=== PATIENT | male | born 1990 | race Caucasian/White ===

== ENCOUNTER 2018-04-12 10:44 | Emergency (ER) | payer OTHER ==
[2018-04-12 10:59] VITALS: BP 122/83
[2018-04-12] MEDS ORDERED: DEXAMETHASONE 10 MG/ML VIAL PO STA (12:04)
--- NOTE | 2018-04-12 12:08 | ED Physician Documentation ---
PD HPI HEENT - Stated complaint Stated Complaint: SORE THROAT - Chief complaint Chief Complaint: Heent - History obtained from History obtained from: Patient, Family - History of Present Illness Timing - onset: How many days ago (3) Timing - duration: Days (3) Timing - details: Gradual onset, Still present Location: Throat Improves: Medication Worsens: Swalllowing Associated symptoms: Fever, Congestion, Rhinorrhea, Swollen nodes, Cough Similar symptoms before: Has not had sx before Recently seen: Not recently seen - Additional information Additional information: Previously well 27-year-old male is been sick for about 3 days with a cough fever and congestion. He has been coughing up some thick yellow phlegm. He has had a bit of a fever and his chief complaint is a sore throat. His pain with swallowing but is able to breathe well. Review of Systems Constitutional: reports: Fever, Chills, Fatigue Eyes: denies: Decreased vision Ears: denies: Ear pain Nose: reports: Rhinorrhea / runny nose, Congestion Throat: reports: Sore throat Cardiac: denies: Chest pain / pressure, Palpitations Respiratory: reports: Cough. denies: Dyspnea GI: denies: Nausea, Vomiting : denies: Dysuria, Frequency Skin: denies: Rash Musculoskeletal: denies: Neck pain, Back pain, Extremity pain Neurologic: denies: Generalized weakness, Focal weakness PD PAST MEDICAL HISTORY - Present Medications Home Medications: Ambulatory Orders Medication Instructions Recorded Confirmed Azithromycin [Zithromax] 250 mg PO DAILY #6 tablet 04/12/18 - Allergies Allergies/Adverse Reactions: Allergies Allergy/AdvReac Type Severity Reaction Status Date / Time Penicillins Allergy Hives Verified 04/12/18 10:52 PD ED PE NORMAL - Vitals Vital signs reviewed: Yes (hypertensive mild ) - General General: Alert and oriented X 3, No acute distress, Well developed/nourished - HEENT HEENT: Atraumatic, PERRL, EOMI, Other (Right TM is inflamed the left is less so. The tonsils are 1+ cryptic and exudative. The left is larger than the right. 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, No motor deficit, No sensory deficit, Normal speech Eye Opening: Spontaneous Motor: Obeys Commands Verbal: Oriented GCS Score: 15 - Psych Psych: Normal mood, Normal affect Results - Vitals Vitals: Vital Signs - 24 hr 04/12/18 10:50 Temperature 36.4 C L Heart Rate 84 Respiratory 16 Rate Blood Pressure 122/83 H O2 Saturation 98 Oxygen O2 Source Room air - Labs Labs: Laboratory Tests 04/12/18 10:50 Group A Strep Rapid Negative PD MEDICAL DECISION MAKING - ED course Complexity details: reviewed results, re-evaluated patient, considered differential, d/w patient, d/w family ED course: 27-year-old male with a sore throat has some swollen tonsils with exudate and he has otitis on exam. He has been coughing up thick yellow phlegm. He is administered dexamethasone 10 mg orally and we will place him on some azithromycin. - Sepsis Event Vital Signs: Vital Signs - 24 hr 04/12/18 10:50 Temperature 36.4 C L Heart Rate 84 Respiratory 16 Rate Blood Pressure 122/83 H O2 Saturation 98 Oxygen O2 Source Room air Departure - Departure Disposition: 01 Home, Self Care Clinical Impression: Tonsillitis Otitis media Qualifiers: Otitis media type: suppurative Chronicity: acute Laterality: right Recurrence: not specified as recurrent Spontaneous tympanic membrane rupture: without spontaneous rupture Qualified Code(s): H66.001 - Acute suppurative otitis media without spontaneous rupture of ear drum, right ear Condition: Stable Instructions: ED Otitis Media Acute Adult, ED Tonsillitis Follow-Up: [facility] [Provider Group] Prescriptions: Azithromycin [Zithromax] 250 mg PO DAILY #6 tablet
[2018-04-12] MEDS ORDERED: CHERRY SYRUP 10 ML UDC PO ONE (12:10)
== END 2018-04-12 12:16 | disposition home or self-care (01) ==
LOC: ED 10:44
DX: J03.90 Acute tonsillitis, unspecified (principal); H66.001 Acute suppurative otitis media without spontaneous rupture of ear drum, right ear
CPT/HCPCS: 87070; 87430; 99282; 99283; A9270

== ENCOUNTER 2023-02-08 10:02 | Emergency (ER) | payer OTHER ==
[2023-02-08 10:18] LABS: BASOPHILS % (AUTO) 0.5 %; EOSINOPHILS % (AUTO) 0.5 %; HCT - HEMATOCRIT 45.8 % (42.0-52.0); LYMPHOCYTES # (AUTO) 1.4 10^3/uL (1.5-3.5); LYMPHOCYTES % (AUTO) 21.2 %; MEAN CORPUSCULAR HEMOGLOBIN 29.6 pg (27.0-31.0); MEAN CORPUSCULAR HGB CONC 32.8 g/dL (32.0-36.0); MEAN CORPUSCULAR VOLUME 90.5 fL (80.0-94.0); MEAN PLATELET VOLUME 10.1 fL (7.4-11.4); MONOCYTES # (AUTO) 0.5 10^3/uL (0.0-1.0); MONOCYTES % (AUTO) 7.6 %; NEUTROPHILS # (AUTO) 4.5 10^3/uL (1.5-6.6); PLT - PLATELET COUNT 203 10^3/uL (130-450); RED BLOOD COUNT 5.06 10^6/uL (4.70-6.10); RED CELL DISTRIBUTION WIDTH 12.8 % (12.0-15.0); WHITE BLOOD COUNT 6.5 x10^3/uL (4.8-10.8)
--- NOTE | 2023-02-08 10:29 | ED Physician Documentation ---
PD HPI CHEST PAIN - Stated complaint Stated Complaint: CHEST PX,FATIGUE - Chief complaint Chief Complaint: Cardiac - History of Present Illness Timing - onset: Enter time, How many hours ago (1), Today Timing - onset during: Light activity Timing - duration: Hours (1) Timing - details: Abrupt onset, Still present (though lessening) Quality: Aching, Sharp, Pain Location: Left chest, Upper back Radiation: Back. No: Jaw, Neck Improved by: No: Rest Worsened by: No: Inspiration, Movement, Palpation Associated symptoms: Feeling faint / dizzy. No: Shortness of air, Nausea, Vomiting, Cough Similar symptoms before: Has not had sx before Recently seen: Not recently seen Review of Systems Constitutional: denies: Fever, Chills, Myalgias Nose: denies: Rhinorrhea / runny nose, Congestion Throat: denies: Sore throat Respiratory: denies: Cough GI: denies: Abdominal Pain, Vomiting, Diarrhea Skin: denies: Rash, Lesions Neurologic: reports: Near syncope (he describes few occasional episodes of feeling lightheaded and generally weak without syncope. Lasts minute or less. Not related to heavy exertion (he works out okay without symptoms).) PD PAST MEDICAL HISTORY - Past Medical History Cardiovascular: None Respiratory: None Neuro: None Endocrine/Autoimmune: None - Present Medications Home Medications: Ambulatory Orders Medication Instructions Recorded Confirmed Azithromycin [Zithromax] 250 mg PO DAILY #6 tablet 04/12/18 - Allergies Allergies/Adverse Reactions: Allergies Allergy/AdvReac Type Severity Reaction Status Date / Time Penicillins Allergy Hives Verified 02/08/23 10:05 - Living Situation Living Situation: reports: With spouse/s.o. Living Arrangement: reports: At home - Social History Does the pt smoke?: No Does the pt drink ETOH?: No Does the pt have substance abuse?: No PD ED PE NORMAL - Vitals Vital signs reviewed: Yes - General General: Alert and oriented X 3, No acute distress, Well developed/nourished - Neck Neck: Supple, no meningeal sign, No adenopathy - Cardiac Cardiac: RRR, No murmur - Respiratory Respiratory: Clear bilaterally - Abdomen Abdomen: Soft, Non tender - Back Back: No CVA TTP - Derm Derm: Normal color, Warm and dry - Neuro Neuro: Alert and oriented X 3, No motor deficit, Normal speech Results - Vitals Vitals: Vital Signs - 24 hr 02/08/23 02/08/23 02/08/23 10:05 10:45 11:44 Temperature 36.5 C Heart Rate 62 59 L 58 L Respiratory 16 16 14 Rate Blood Pressure 148/89 H 122/81 H 115/69 O2 Saturation 98 99 100 02/08/23 02/08/23 13:53 14:27 Temperature Heart Rate 55 L 53 L Respiratory 15 13 Rate Blood Pressure 120/79 127/80 O2 Saturation 99 97 Oxygen O2 Source Room air - EKG (time done) 10:25 EKG releavant findings:: EKG personally interpreted by author of this note. Relevant findings are: Rate: Rate (enter#) (53) Rhythm: Sinus bradycardia Bishop: Normal Intervals: Normal MS QRS: Normal Ischemia: Normal ST segments. No: ST elevation c/w ischemia, ST depression - Labs Labs: Laboratory Tests 02/08/23 02/08/23 02/08/23 10:13 10:13 10:13 WBC 6.5 RBC 5.06 Hgb 15.0 Hct 45.8 MCV 90.5 MCH 29.6 MCHC 32.8 RDW 12.8 Plt Count 203 MPV 10.1 Neut # (Auto) 4.5 Lymph # (Auto) 1.4 L [place] # (Auto) 0.5 Eos # (Auto) 0.0 Baso # (Auto) 0.0 Absolute Nucleated RBC 0.00 Nucleated RBC % 0.0 Sodium 139 Potassium 4.0 Chloride 103 Carbon Dioxide 28 Anion Gap 8.0 BUN 15 Creatinine 1.1 Estimated GFR (MDRD) 79 L Glucose 107 H Calcium 9.7 Total Bilirubin 0.7 AST 23 ALT 33 Alkaline Phosphatase 67 Troponin I High Sens < 2.3 L C-Reactive Protein B-Natriuretic Peptide Total Protein 8.0 Albumin 4.4 Globulin 3.6 Albumin/Globulin Ratio 1.2 Lipase 34 02/08/23 02/08/23 10:13 10:13 WBC RBC Hgb Hct MCV MCH MCHC RDW Plt Count MPV Neut # (Auto) Lymph # (Auto) [place] # (Auto) Eos # (Auto) Baso # (Auto) Absolute Nucleated RBC Nucleated RBC % Sodium Potassium Chloride Carbon Dioxide Anion Gap BUN Creatinine Estimated GFR (MDRD) Glucose Calcium Total Bilirubin AST ALT Alkaline Phosphatase Troponin I High Sens C-Reactive Protein < 1.0 B-Natriuretic Peptide 19 Total Protein Albumin Globulin Albumin/Globulin Ratio Lipase - Rads (name of study) chest xray Relevant Findings:: Prelim report reviewed, EMP independent interpretation of test (no acute process. ) chest CT-A Relevant Findings:: Prelim report reviewed (no PEs, lungs clear, normal thoracic aorta.), See rad report PD Medical Decision Making - ED course Complexity details: reviewed results (ECG showing RBBB, which might be normal/chronic for him, but no prior ECGs available and he does not recall prior ones. Given some abnormal ECG (not ischemic though) and chest pain, I was more concerned even for younger age. To get trop, CXR, and likely CT-A for PE/dissection. ), considered differential (abrupt severe left chest pain today nonexertional. No recent URI. No injury. Is lesseneing enroute here and moderate here. ), d/w patient Reviewed Lab Results: labs and CT-A are without acute findings. With all tests normal, presume RBBB not acutely ischemic/etc. Chest pain likely musculoskeletal though not a pleuritic component. I did do bedside U/S of the heart and found normal size, no wall thickening, concentric normal contractility, and no pericaridal effusion. Troponin is normal. BNP as well. No anemic, electrlyte problems, no signs of CHF. Departure - Departure Disposition: 01 Home, Self Care Clinical Impression: Chest pain, Fatigue, Right bundle branch block (RBBB) on electrocardiogram (ECG) Condition: Stable Record reviewed to determine appropriate education?: Yes Instructions: Block Right Bundle Branch, ED Chest Pain Atypical Unkn Cause Follow-Up: ANI SELBY MD [Primary Care Provider] - Comments: Its unclear the cause of the pain you had in your chest. I presume musculoskeletal and with that I would suggest ibuprofen 2-3 times daily if neede d for pain and discomfort. Add Tylenol if needed. Here in the ER, your chest x-ray and CT scan of the chest are normal without any signs of pneumonia/collapsed lung, fluid around the heart or lung and no blood clots nor aneurysms/dissection. Your blood tests that evaluate for heart failure and heart muscle injury are both normal as well. We did an inflammation marker called CRP that is normal so not no sign of immune inflammatory processes such as pericarditis. I did a bedside ultrasound evaluation of your heart. We do not have the technicians for a formal echocardiogram today but on my view, you have symmetric and normal contractions of the heart muscle with normal size of the heart and no fluid around. No obvious abnormality on that. Regarding episodes of lightheadedness or fatigue, your blood tests were normal with regard to blood count and chemistry panel. No signs of diabetes, anemia, electrolyte problems, kidney or liver problems. At this point I think normal activity is okay. I would follow-up with your primary care. They may wish to do some further heart testing as your EKG did show an electrical abnormality called a right bundle branch block. This typically is benign and just can be a normal variation. It may be prudent to have a formal ultrasound of the heart to ensure no structural problems (valve abnormalities or heart murmurs etc.). This does not need to be done urgently. Follow-up with your primary care if the chest pain has not resolved over the next several days to week or you continue with other this lightheaded episodes etc. Be sure to stay well-hydrated. Perhaps decrease caffeine use in general. Discharge Date/Time: 02/08/23 14:31
[2023-02-08 10:30] LABS: ALBUMIN 4.4 g/dL (3.2-5.5); ALBUMIN/GLOBULIN RATIO 1.2 (1.0-2.2); BILIRUBIN,TOTAL 0.7 mg/dL (0.2-1.0); CALCIUM 9.7 mg/dL (8.5-10.3); CREATININE 1.1 mg/dL (0.6-1.2)
--- NOTE | 2023-02-08 10:36 | XRAY Report ---
PROCEDURE: Chest 1 View X-Ray INDICATIONS: Chest pain TECHNIQUE: One view of the chest was acquired. COMPARISON: None. FINDINGS: Surgical changes and devices: None. Lungs and pleura: No pleural effusions or pneumothorax. Lungs are clear. Mediastinum: Mediastinal contours appear normal. Heart size is normal. Bones and chest wall: No suspicious bony lesions. Overlying soft tissues appear unremarkable. IMPRESSION: No acute cardiopulmonary process. Reviewed by: Rod Keys MD on 02/08/2023 10:35 AM PDT Approved by: Rod Keys MD on 02/08/2023 10:35 AM PDT Station ID: [id number]
[2023-02-08] MEDS ORDERED: KETOROLAC 15 MG/ML VIAL IVP STA (11:30)
[2023-02-08] MEDS ORDERED: iohexoL-300 100 ML VIAL ONE (12:39)
--- NOTE | 2023-02-08 14:14 | CT Report ---
PROCEDURE: ANGIO CHEST W/WO INDICATIONS: left chest pain acute CONTRAST: 80ml omni 300 TECHNIQUE: After the administration of intravenous contrast, 2 mm axial images were acquired from the pulmonary apices to the posterior costophrenic angles during the arterial phase. In addition, 1 mm lung kernel and 5 mm soft tissue kernel reconstructions were performed. 3-dimensional coronal oblique maximum int ensity projection (MIP) reformats, 8 mm axial MIP, and 5 mm coronal and sagittal MPR reformats were t hen performed through the thorax. For radiation dose reduction, the following was used: automated exp osure control, adjustment of mA and/or kV according to patient size. COMPARISON: None FINDINGS: Image quality: Excellent. Large vessels: No filling defects within the opacified pulmonary arteries, accounting for motion and contrast timing. No evidence of acute aortic syndrome or aortic aneurysm. Lungs and pleura: No consolidation. No pleural effusions. No pneumothorax. No suspicious pulmonary n odules which require follow up. Mediastinum: Heart size is normal. No pericardial effusion. No large vessel abnormality. No mediastin al adenopathy by size criteria. Chest wall and lower neck: Thyroid is unremarkable. No axillary or supraclavicular adenopathy by size . Bones: No aggressive osseous abnormality. Upper Abdomen: Unremarkable. IMPRESSION: 1. No evidence acute pulmonary emboli. Normal appearance of thoracic aorta. 2. No acute pulmonary process. Reviewed by: Rod Keys MD on 02/08/2023 2:12 PM PDT Approved by: Rod Keys MD on 02/08/2023 2:12 PM PDT Station ID: [id number]
[2023-02-08 14:31] VITALS: BP 127/80
[2023-02-08] MEDS ORDERED: iohexoL-300 100 ML VIAL IVP ONE (15:22)
== END 2023-02-08 14:31 | disposition home or self-care (01) ==
LOC: ED 10:02
DX: I45.10 Unspecified right bundle-branch block (principal)
CPT/HCPCS: 36415; 71045; 71275; 80053; 83690; 83880; 84484; 85025; 86140; 93005; 96374; 99283; 99284; Q9967